=== PATIENT | female | born 1960 | race Hispanic/Latino ===

== ENCOUNTER 2024-10-01 12:12 | Emergency (ER) | payer OTHER ==
[~2024-10-01] VITALS: Ht 157.5 cm; Wt 78.9 kg
[2024-10-01 12:16] VITALS: PULSE 84; RESP 18; TEMP 98.4
[2024-10-01] MEDS ORDERED: NAPROXEN250 MG PO (13:55)
[2024-10-01 14:13] VITALS: BP 114/84; PULSE 86; RESP 18; TEMP 98.3; O2SAT 98
== END 2024-10-01 14:55 | disposition home or self-care (01) ==
LOC: ER 13:41
DX: M25.531 Pain in right wrist (principal); M79.644 Pain in right finger(s); W20.8XXA Other cause of strike by thrown, projected or falling object, initial encounter; Y92.89 Other specified places as the place of occurrence of the external cause; M19.031 Primary osteoarthritis, right wrist
CPT/HCPCS: 99283